=== PATIENT | male | born 1995 | race African-American/Black ===

== ENCOUNTER 2020-10-12 04:09 | Emergency (ER) | payer SELFPAY ==
[~2020-10-12] VITALS: Ht 165.1 cm; Wt 60.0 kg
--- NOTE | 2020-10-12 04:26 | PHYS DOC ---
Past Medical History Past Medical History: Kidney Stone (CALI MCCOY MD) Past Surgical History: No Surgical History (CALI MCOCY MD) Smoking Status: Never Smoker Alcohol Use: None Drug Use: None (CALI MCCOY MD) General Adult EDM: Chief Complaint: FLANK PAIN HPI: HPI: 25-year-old male is in the emergency department complaining of 2 days of intermittent pain in bilateral flanks although he does states that the pain in the left leg is worse on the right side, says pain is stabbing, radiates from the left flank to the right flank and down the back, says he has a history of kidney stones although cannot recall which side he had had them on or if any instrumentation or lithotripsy was done, denies any blood in urine, no nausea or vomiting, no recent falls or injuries, no loss of bowel or bladder control, no focal numbness/tingling in face, arms or legs. No chest pain or shortness of breath. He does state that he went to before he came here and the wait was too long in the ER (CALI MCCOY MD) Review of Systems: Review of Systems: General: no fevers , no chills, no general weakness Eyes: no blurred vision, no diplopia Skin: no rashes Neck: no swelling, no neck stiffness, no neck pain Heme: no bleeding, no lymph node enlargement Ear/Nose/Throat: No sore throat, no runny nose, no hearing loss, no difficulty swallowing Cardiovascular: no Chest pain, no palpitations Respiratory: No dyspnea, no cough, no hemoptysis Gastrointestinal: No abdominal pain, no nausea, no vomiting, no diarrhea, no blood in stool Genitourinary: no dysuria, no hematuria, positive for left and right flank pain Musculoskeletal: no back pain, no leg pain, no arm pain, no arthralgia Neurologic: no headaches, no dizziness, no focal numbness/tingling, no focal weakness Psych: no depression, no anxiety, no SI/HI *All review of systems are negative other than what is noted above (CALI MCCOY MD) Heart Score: C/O Chest Pain: No Risk Factors: Risk Factors: DM, Current or recent (<one month) smoker, HTN, HLP, family history of CAD, obesity. Risk Scores: Score 0 - 3: 2.5% MACE over next 6 weeks - Discharge Home Score 4 - 6: 20.3% MACE over next 6 weeks - Admit for Clinical Observation Score 7 - 10: 72.7% MACE over next 6 weeks - Early Invasive Strategies (CALI MCCOY MD) Current Medications: Current Medications Medications (Trade) Dose Ordered Sig/Jamie Start Time Stop Time Status Last Admin Dose Admin Morphine Sulfate (Morphine Sulfate) 4 mg 1X ONCE 10/12/20 04:30 10/12/20 04:31 UNV Sodium Chloride 1,000 ml @ 1,000 mls/hr 1X ONCE 10/12/20 04:30 10/12/20 05:29 UNV (CALI MCCOY MD) Allergies: Allergies: Allergies Coded Allergies Type Severity Reaction Last Updated Verified No Known Drug Allergies 09/12/13 No (CALI MCCOY MD) Physical Exam: PE: Gen-well appearing, no acute distress Head: Normocephalic/Atraumatic ENT: atraumatic, PERRLA, EOMI, oropharynx clear Neck: supple, full ROM/strength, no JVD, no nuchal rigidity Lungs: no distress, speaks in full sentences, Clear to auscultation bilaterally CV: reg rate, rhythm, no murmus/rubs/gallops, peripheral pulses equal in all ex tremities Abdomen: soft/nontender, no guarding/rebound tenderness, no rigidity, non distended, normoactive bowel sounds Musculoskeletal: full ROM/strength in all extremities, atraumatic, no swelling Back: full range of motion/strength Skin: intact, no rashes Lymph: no gross YARA Neuro: alert and oriented x 4, CN 2-12 grossly intact, Motor strength is 5/5 in all extremities, no focal sensory deficits, no focal ataxia, ambulatory with steady gait Psych: normal mood/affect (CALI MCCOY MD) Current Patient Data: Vital Signs: Vital Signs Date Time Temp Pulse Resp B/P (MAP) Pulse Ox O2 Delivery O2 Flow Rate FiO2 10/12/20 04:15 98.4 78 162/79 100 Room Air 98.4 (CALI MCCOY MD) EKG: EKG: [] (CALI MCCOY MD) Radiology/Procedures: Radiology/Procedures: [] (CALI MCCOY MD) Radiology/Procedures: EXAM: CT ABDOMEN/PELVIS WITHOUT CONTRAST. HISTORY: Left flank pain. TECHNIQUE: Computed tomography of the abdomen and pelvis was performed without intravenous contrast. One or more of the following individualized dose reduction techniques were utilized for this examination: 1. Automated exposure control. 2. Adjustment of the mA and/or kV according to patient size. 3. Use of iterative reconstruction technique. COMPARISON: None. FINDINGS: Lung windows through the visualized portions of the bases reveal focal air trapping in the left lower lobe medially. Bone windows reveal no suspicious lesions. There are nondisplaced bilateral L5 pars interarticularis defects. A bone island is noted within the left proximal femur. There are no renal or ureteral calculi. There is no hydronephrosis. There are no suspicious renal lesions without contrast. The liver, spleen, pancreas, gallbladder and adrenal glands are unremarkable without contrast. There are no pathologically enlarged lymph nodes. There is no small bowel obstruction. The appendix is not inflamed. IMPRESSION: 1. No renal or ureteral calculi. No cause for pain is identified. Electronically signed by: Florencio Rojas MD (10/12/2020 6:39 AM) (MISTY CROWE DO) Course & Med Decision Making: Course & Med Decision Making Pertinent Labs and Imaging studies reviewed. (See chart for details) [] 25-year-old male reports a history of kidney stones and presents to the emergency department complaining of bilateral flank pain although he does complain of left worse than right, exam benign, abdomen nontender, the differential diagnosis in this patient includes but not limited to myofascial strain, kidney stone, pyelonephritis/UTI, pancreatitis, colitis/diverticulitis, gallstone, unlikely AAA, SBO, appendicitis, mesenteric ischemia, unlikely any acute cardiopulmonary etiology, no pain out of proportion on exam, plan at this time is to check urine, labs and a noncontrast CT of the abdomen pelvis, will hydrate the patient, will reevaluate examined him in the midst of his work-up determine the best course of action is a data becomes available Update at 5:45 AM: He is feeling better, work-up here was negative, will discharge at this time Patient was seen in the ED for flank and back pain that improved the emergency department, his work-up here is negative and had a negative CT scan, there is no apparent evidence of any emergency medical pathology at this time, patient was advised follow-up with their primary care provider /physician in the next 24-48 hours and to return to the ED before then if any new or worsening / concerning symptoms had developed. All questions and concerns were addressed at time of disposition (CALI MCCOY MD) Course & Med Decision Making Assumed care from Dr. Mccoy at 0600, pending CT read. 0645: CT as above, patient discharged home as per sign out recommendations (MISTY CROWE DO) Drea Disclaimer: Drea Disclaimer: This electronic medical record was generated, in whole or in part, using a voice recognition dictation system. (CALI MCCOY MD) Departure Departure Impression: Primary Impression: Flank pain Additional Impression: Back pain Qualified Codes: M54.5 - Low back pain Condition: IMPROVED Referrals: JOSE LUIS MAHONEY (PCP) 2 days Patient Instructions: Back Pain, Adult Additional Instructions: The good news is that your test here were okay, nothing dangerous, no kidney stones, I recommend you follow-up with your primary care provider in the next 48 hours, return to the nearest emergency room before then if any new or worsening/concerning symptoms develop Scripts Cyclobenzaprine Hcl (CYCLOBENZAPRINE HCL) 10 Mg Tablet 1 TAB PO TID PRN for pain\ for 7 Days, #21 TAB Prov: CALI MCCOY MD 10/12/20 Naproxen Sodium (ANAPROX DS) 550 Mg Tablet 1 TAB PO PRN BID PRN for PAIN for 7 Days, #15 TAB 0 Refills Prov: CALI MCCOY MD 10/12/20 CALI MCCOY MD Oct 12, 2020 04:26 MISTY CROWE DO Oct 12, 2020 06:47
[2020-10-12 04:33] LABS: BASO % 0 % (0-3); EOS % 0 % (0-3); HEMATOCRIT 42.3 % (39.0-53.0); HEMOGLOBIN 14.5 g/dL (13.0-17.5); LYMPH # 0.2 x10^3/uL (1.0-4.8); LYMPH % 2 % (24-48); MEAN CORPUSCULAR HEMOGLOBIN 29 pg (25-35); MEAN CORPUSCULAR HGB CONC 34 g/dL (31-37); MEAN CORPUSCULAR VOLUME 85 fL (79-100); MONO # 1.5 x10^3/uL (0.0-1.1); MONO % 16 % (0-9); NEUT # 7.7 x10^3/uL (1.8-7.7); NEUT % 82 % (31-73); PLATELET COUNT 147 x10^3/uL (140-400); RED BLOOD COUNT 5.01 x10^6/uL (4.30-5.70); RED CELL DISTRIBUTION WIDTH 13.1 % (11.5-14.5); WHITE BLOOD COUNT 9.4 x10^3/uL (4.0-11.0)
[2020-10-12 04:41] LABS: BILIRUBIN,URINE NEGATIVE (NEG); CLARITY,URINE CLEAR; COLOR,URINE YELLOW; NITRITE,URINE NEGATIVE (NEG); PROTEIN,URINE NEGATIVE (NEG-TRACE)
[2020-10-12 04:46] LABS: CALCIUM 9.4 mg/dL (8.5-10.1); GFR 110.2; POTASSIUM 3.6 mmol/L (3.5-5.1)
[2020-10-12 04:49] LABS: RBC,URINE 0 /HPF (0-2); WBC,URINE 0 /HPF (0-4)
[2020-10-12 04:50] LABS: BACTERIA,URINE 0 /HPF (0-FEW)
[2020-10-12 04:52] LABS: ALBUMIN 4.5 g/dL (3.4-5.0); ALBUMIN/GLOBULIN RATIO 1.3 (1.0-1.7); TOTAL BILIRUBIN 0.5 mg/dL (0.2-1.0); TOTAL PROTEIN 7.9 g/dL (6.4-8.2)
[2020-10-12] MEDS ORDERED: MORPHINE SULFATE 4 MG/ML INJ. IVP ONE (05:00)
[2020-10-12] MEDS ORDERED: IV NORMAL SALINE 1000ML BAG 1,000 ML IV ONE (05:00)
[2020-10-12 05:05] LABS: % BANDS 2 % (0-9); % LYMPHS 3 % (24-48); % MONOS 13 % (0-10); % SEGS 82 % (35-66); PLT ESTIMATE ADEQUATE (ADEQUATE)
[2020-10-12] MEDS ORDERED: KETOROLAC 30 MG/ML VIAL. IVP ONE (05:30)
[2020-10-12] MEDS ORDERED: NAPR-682 PO (05:45)
[2020-10-12] MEDS ORDERED: CYCL10TA2 PO (05:45)
[2020-10-12 06:00] VITALS: BP 102/51
--- NOTE | 2020-10-12 06:41 | RAD ---
EXAM: CT ABDOMEN/PELVIS WITHOUT CONTRAST. HISTORY: Left flank pain. TECHNIQUE: Computed tomography of the abdomen and pelvis was performed without intravenous contrast. One or more of the following individualized dose reduction techniques were utilized for this examinat ion: 1. Automated exposure control. 2. Adjustment of the mA and/or kV according to patient size. 3. Use of iterative reconstruction technique. COMPARISON: None. FINDINGS: Lung windows through the visualized portions of the bases reveal focal air trapping in the left lower lobe medially. Bone windows reveal no suspicious lesions. There are nondisplaced bilateral L5 pars interarticularis defects. A bone island is noted within the left proximal femur. There are no renal or ureteral calculi. There is no hydronephrosis. There are no suspicious renal les ions without contrast. The liver, spleen, pancreas, gallbladder and adrenal glands are unremarkable without contrast. There are no pathologically enlarged lymph nodes. There is no small bowel obstruction. The appendix is not inflamed. IMPRESSION: 1. No renal or ureteral calculi. No cause for pain is identified. Electronically signed by: Florencio Rojas MD (10/12/2020 6:39 AM) [facility]
== END 2020-10-12 06:54 | disposition home or self-care (01) ==
LOC: ER 04:09
DX: R10.9 Unspecified abdominal pain (principal); M54.5 Low back pain; Z87.442 Personal history of urinary calculi
CPT/HCPCS: 36415; 74176; 80053; 81001; 83690; 85007; 85025; 96361; 96374; 96375; 99284; J1885; J2270; J7030